=== PATIENT | male | born 1950 | race Caucasian/White ===

== ENCOUNTER 2017-03-17 06:42 | Emergency (ER) | payer OTHER ==
--- NOTE | 2017-03-17 07:28 | ED ORDER SUMMARY ---
..... Patient: TERE CARRERO OrderSheet [facility] VisitID: [id number] [place] [address] 66y, M Registration Date/Time: 03/17/2017 ORDER SHEET Weight: 72.5 kg (stated) Allergies: Penicillins, Seasonal GENERAL ORDERS: MEDICATION ORDERS: Albuterol Neb w Atrovent 1 unit dose (NOW) (06:47 03/17/2017 DDavis R.N. per protocol) (Ack 6:55 JQuivey R.N.) (6:57 MNance) Prednisone PO 40 mg (NOW) (06:52 03/17/2017 Jarrett Jiménez) (Ack 6:55 JQuivey R.N.) (6:58 DDavis R.N.) IV FLUIDS: ORDER SHEET NOTES: [Electronically signed by Mary Waller R.N. (07:44 03/17/2017)] [Electronically signed by Edward Srivastava Dr. (10:50 03/23/2017)] [Electronically locked/signed by Mary Waller R.N. (07:44 03/17/2017)]
--- NOTE | 2017-03-17 07:28 | ED ORDER SUMMARY ---
..... Patient: TERE CARRERO OrderSheet [facility] VisitID: [id number] [place] [address] 66y, M Registration Date/Time: 03/17/2017 ORDER SHEET Weight: 72.5 kg (stated) Allergies: Penicillins, Seasonal GENERAL ORDERS: MEDICATION ORDERS: Albuterol Neb w Atrovent 1 unit dose (NOW) (06:47 03/17/2017 DDavis R.N. per protocol) (Ack 6:55 JQuivey R.N.) (6:57 MNance) Prednisone PO 40 mg (NOW) (06:52 03/17/2017 Jarrett Jiménez) (Ack 6:55 JQuivey R.N.) (6:58 DDavis R.N.) IV FLUIDS: ORDER SHEET NOTES: [Electronically signed by Mary Waller R.N. (07:44 03/17/2017)] [Electronically signed by Edward Srivastava Dr. (10:50 03/23/2017)] [Electronically locked/signed by Mary Waller R.N. (07:44 03/17/2017)]
--- NOTE | 2017-03-17 07:28 | ED NURSING NOTES ---
Clinical Report - Nurses [facility] [address] [place] [address] 03/17/2017 6:44 Patient: TERE CARRERO TRIAGE Triage time 06:49. Acuity: LEVEL 3. Chief Complaint: SHORTNESS OF BREATH and WHEEZING. Alert. --06:53 Jason Bowman R.N. 06:48 03/17/17. BP: 166/85. HR: 94. RR: 24 (regular and labored). O2 saturation: 94%. Temp: 98.1 F (oral). Pain level now: 0/10. --06:53 Jason Bowman R.N. Weight: 72.5 kg stated. Height/Length: 70 inches Per Patient. BMI: 22.9. --06:51 Jason Bowman R.N. Medications Flonase Nasal. Flovent HFA Inhalation. --06:50 Jason Bowman R.N. Quvar. --06:51 Jason Bowman R.N. ProAir HFA Inhalation. --06:51 Jason Bowman R.N. Combivent Respimat Inhalation. Combivir Oral. --06:52 Jason Bowman R.N. Allergies Penicillins. Seasonal. --06:50 Jason Bowman R.N. History Arrived by private vehicle. Historian: patient. Unaccompanied. Onset. (>4 days ago). He has had wheezing. PAST MEDICAL HX: Asthma. SOCIAL HX: Never smoker. No alcohol use or drug use. ( denies SI/HI). FALL RISK ASSESSMENT: Fall risk assessment completed. No fall risk identified. NUTRITIONAL RISK ASSESSMENT: The nutritional risk assessment revealed no deficiencies. FUNCTIONAL ASSESSMENT: Functional assessment: no impairments noted. LEARNING NEEDS ASSESSMENT: The learning needs assessment revealed no barriers. SKIN INTEGRITY ASSESSMENT: Skin integrity risk assessment completed. No skin integrity risk identified. --06:53 Jason Bowman R.N. ADDITIONAL SURGERIES: no known surgeries. Interventions ID and allergy band on patient. To treatment room. --06:53 Jason Bowman R.N. PHYSICAL ASSESSMENT Ambulatory to room. GENERAL / NEURO / PSYCH: Alert. Oriented X 4. RESPIRATORY: Mild respiratory distress. Chest nontender. Wheezing present. CVS: Capillary refill less than 2 seconds. GI / : Abdomen soft and nontender. SKIN: Skin is warm and dry. --06:54 Jason Bowman R.N. NURSING PROGRESS NOTES Pulse oximeter and NIBP monitor placed on patient. Patient gowned. Head of bed elevated. Reassurance given. Two patient identifiers checked. Call light placed in reach. Side rails up x 1. Bed placed in lowest position. Brakes of bed on. Patient ready for evaluation- chart flagged. Patient waiting for evaluation. --06:54 Jason Bowman R.N. 06:57 03/17/2017 ALBUTEROL NEB W ATROVENT Neb TX 1 unit dose given. --06:57 Cecil Yeager 06:58 03/17/2017 Prednisone PO Tablets 40 mg given. Allergies verified and confirmed 5 rights. --06:58 Jason Bowman R.N. Care transferred and report given. --07:00 Jason Bowman R.N. ( Report given to Mary RN and Leoncio RN (dayswaft nurses). RT currently with patient, administering breathing treatment.). --07:01 Jason Bowman R.N. ( (Report given to Mary Waller RN)). --07:02 Jason Bowman R.N. 07:03 03/17/17. BP: 140/90 (regular adult cuff) taken on the left arm, while sitting. HR: 85. RR: 20. O2 saturation: 100% on nasal cannula at 3 liters/minute. --07:05 Mary Waller R.N. ( Patient just received albuterol treatment and is breathing better.). --07:06 Mary Waller R.N. DISPOSITION / DISCHARGE Condition at departure: improved. No learning barriers present. Discharge instructions provided and reviewed with the patient. Reviewed medication(s) side effects, precautions and dosing information. Prescription(s) given to the patient. Patient verbalized understanding. Written instructions provided in [place]. The patient was discharged by the physician. He was discharged home. He left the Emergency Department ambulatory and via private vehicle. Patient driving. --07:41 Mary Waller R.N. 07:36 03/17/17. BP: 125/77 (regular adult cuff) taken on the left arm, while sitting. HR: 79. RR: 18. O2 saturation: 97% on room air. Temp: 98.4 F (oral). Pain level now: 0/10. --07:41 Mary Waller R.N. Departure time: 07:43 Mar 17 2017. --07:43 Mary Waller R.N. Locked/Released at 03/17/2017 7:44 by Mary Waller R.N.
--- NOTE | 2017-03-17 07:28 | ED CLINICAL REPORT ---
Clinical Report - Physicians/Mid Levels [facility] [address] [place] [address] 03/17/2017 6:44 Patient: TERE CARRERO Time Seen: 06:52; initial patient contact. Arrived- By private vehicle. Historian- patient. HISTORY OF PRESENT ILLNESS Chief Complaint: DYSPNEA, WHEEZING and HISTORY OF ASTHMA. Is still present. The dyspnea is described as moderate. The patient has had a cough. No sputum production, orthopnea or chest pain or discomfort. Asthma triggers: allergies, animals and smoke. Takes asthma medications (inhaled albuterol, inhaled steroid, oral medication, leukotriene inhibitor) Similar symptoms previously: Many times. Recent medical care: Not recently seen/assessed. REVIEW OF SYSTEMS The patient has had a nasal discharge and sinus drainage. No fever, chills or skin rash. All systems otherwise negative, except as recorded above. PAST HISTORY Asthma. SOCIAL HISTORY Never smoker. No alcohol use or drug use. ADDITIONAL NOTES The nursing notes have been reviewed. PHYSICAL EXAM Vital Signs: 03/17/2017 06:48 BP: 166/85. HR: 94. RR: 24. O2 saturation: 94%. Temp: 98.1 F. Pain level now: 0/10. Have been reviewed. Hypertensive. Heart rate normal. Tachypneic. Temperature normal. Oxygen saturation low. Appearance: Alert. No acute distress. Eyes: Eyes normal inspection. ENT: Pharynx normal. Neck: Normal inspection. No JVD. CVS: Normal heart rate and rhythm. Heart sounds normal. Respiratory: Mild respiratory distress with accessory muscle use and retractions. Mildly prolonged expirations. Mildly decreased air movement diffusely over both lungs. Expiratory mild bilateral wheezes diffusely. No stridor, rales or rhonchi. Skin: Normal skin color. No rash. Extremities: No calf tenderness. No lower extremity edema. Neuro: Oriented X 3. PROGRESS AND PROCEDURES Course of Care: DuoNeb nebulizer treatment (1 unit dose) given. Physical exam findings are improved. Symptoms much better. Disposition: Discharged home in good and improved condition. Condition: good. CLINICAL IMPRESSION Moderate persistent asthma with an acute exacerbation. No status asthmaticus. INSTRUCTIONS Your Current Medications: CONTINUE TAKING THE FOLLOWING MEDICATIONS: Combivent Respimat Inhalation. Combivir Oral. Flonase Nasal. Flovent HFA Inhalation. ProAir HFA Inhalation. Quvar*. Prescription Medications: Prednisone 20 mg: take 2 orally every day for 4 days. Dispense sufficient quantity. No refills. (Start on 03/18/17) Follow-up: Follow up with your doctor in about two days. Call for an appointment. Screening today revealed the patient's blood pressure to be in the hypertensive range. The patient should follow up with a primary care provider for blood pressure management. (Electronically signed by Edward Srivastava Dr. 03/23/2017 10:50)
--- NOTE | 2017-03-17 07:28 | ED CLINICAL REPORT ---
Clinical Report - Physicians/Mid Levels [facility] [address] [place] [place] [address] 03/17/2017 6:44 Patient: TERE CARRERO Time Seen: 06:52; initial patient contact. Arrived- By private vehicle. Historian- patient. HISTORY OF PRESENT ILLNESS Chief Complaint: DYSPNEA, WHEEZING and HISTORY OF ASTHMA. Is still present. The dyspnea is described as moderate. The patient has had a cough. No sputum production, orthopnea or chest pain or discomfort. Asthma triggers: allergies, animals and smoke. Takes asthma medications (inhaled albuterol, inhaled steroid, oral medication, leukotriene inhibitor) Similar symptoms previously: Many times. Recent medical care: Not recently seen/assessed. REVIEW OF SYSTEMS The patient has had a nasal discharge and sinus drainage. No fever, chills or skin rash. All systems otherwise negative, except as recorded above. PAST HISTORY Asthma. SOCIAL HISTORY Never smoker. No alcohol use or drug use. ADDITIONAL NOTES The nursing notes have been reviewed. PHYSICAL EXAM Vital Signs: 03/17/2017 06:48 BP: 166/85. HR: 94. RR: 24. O2 saturation: 94%. Temp: 98.1 F. Pain level now: 0/10. Have been reviewed. Hypertensive. Heart rate normal. Tachypneic. Temperature normal. Oxygen saturation low. Appearance: Alert. No acute distress. Eyes: Eyes normal inspection. ENT: Pharynx normal. Neck: Normal inspection. No JVD. CVS: Normal heart rate and rhythm. Heart sounds normal. Respiratory: Mild respiratory distress with accessory muscle use and retractions. Mildly prolonged expirations. Mildly decreased air movement diffusely over both lungs. Expiratory mild bilateral wheezes diffusely. No stridor, rales or rhonchi. Skin: Normal skin color. No rash. Extremities: No calf tenderness. No lower extremity edema. Neuro: Oriented X 3. PROGRESS AND PROCEDURES Course of Care: DuoNeb nebulizer treatment (1 unit dose) given. Physical exam findings are improved. Symptoms much better. Disposition: Discharged home in good and improved condition. Condition: good. CLINICAL IMPRESSION Moderate persistent asthma with an acute exacerbation. No status asthmaticus. INSTRUCTIONS Your Current Medications: CONTINUE TAKING THE FOLLOWING MEDICATIONS: Combivent Respimat Inhalation. Combivir Oral. Flonase Nasal. Flovent HFA Inhalation. ProAir HFA Inhalation. Quvar*. Prescription Medications: Prednisone 20 mg: take 2 orally every day for 4 days. Dispense sufficient quantity. No refills. (Start on 03/18/17) Follow-up: Follow up with your doctor in about two days. Call for an appointment. Screening today revealed the patient's blood pressure to be in the hypertensive range. The patient should follow up with a primary care provider for blood pressure management. (Electronically signed by Edward Srivastava Dr. 03/23/2017 10:50)
--- NOTE | 2017-03-17 07:28 | ED NURSING NOTES ---
Clinical Report - Nurses [facility] [address] [place] [address] 03/17/2017 6:44 Patient: TERE CARRERO TRIAGE Triage time 06:49. Acuity: LEVEL 3. Chief Complaint: SHORTNESS OF BREATH and WHEEZING. Alert. --06:53 Jason Bowman R.N. 06:48 03/17/17. BP: 166/85. HR: 94. RR: 24 (regular and labored). O2 saturation: 94%. Temp: 98.1 F (oral). Pain level now: 0/10. --06:53 Jason Bowman R.N. Weight: 72.5 kg stated. Height/Length: 70 inches Per Patient. BMI: 22.9. --06:51 Jason Bowman R.N. Medications Flonase Nasal. Flovent HFA Inhalation. --06:50 Jason Bowman R.N. Quvar. --06:51 Jason Bowman R.N. ProAir HFA Inhalation. --06:51 Jason Bowman R.N. Combivent Respimat Inhalation. Combivir Oral. --06:52 Jason Bowman R.N. Allergies Penicillins. Seasonal. --06:50 Jason Bowman R.N. History Arrived by private vehicle. Historian: patient. Unaccompanied. Onset. (>4 days ago). He has had wheezing. PAST MEDICAL HX: Asthma. SOCIAL HX: Never smoker. No alcohol use or drug use. ( denies SI/HI). FALL RISK ASSESSMENT: Fall risk assessment completed. No fall risk identified. NUTRITIONAL RISK ASSESSMENT: The nutritional risk assessment revealed no deficiencies. FUNCTIONAL ASSESSMENT: Functional assessment: no impairments noted. LEARNING NEEDS ASSESSMENT: The learning needs assessment revealed no barriers. SKIN INTEGRITY ASSESSMENT: Skin integrity risk assessment completed. No skin integrity risk identified. --06:53 Jason Bowman R.N. ADDITIONAL SURGERIES: no known surgeries. Interventions ID and allergy band on patient. To treatment room. --06:53 Jason Bowman R.N. PHYSICAL ASSESSMENT Ambulatory to room. GENERAL / NEURO / PSYCH: Alert. Oriented X 4. RESPIRATORY: Mild respiratory distress. Chest nontender. Wheezing present. CVS: Capillary refill less than 2 seconds. GI / : Abdomen soft and nontender. SKIN: Skin is warm and dry. --06:54 Jason Bowman R.N. NURSING PROGRESS NOTES Pulse oximeter and NIBP monitor placed on patient. Patient gowned. Head of bed elevated. Reassurance given. Two patient identifiers checked. Call light placed in reach. Side rails up x 1. Bed placed in lowest position. Brakes of bed on. Patient ready for evaluation- chart flagged. Patient waiting for evaluation. --06:54 Jason Bowman R.N. 06:57 03/17/2017 ALBUTEROL NEB W ATROVENT Neb TX 1 unit dose given. --06:57 Cecil Yeager 06:58 03/17/2017 Prednisone PO Tablets 40 mg given. Allergies verified and confirmed 5 rights. --06:58 Jason Bowman R.N. Care transferred and report given. --07:00 Jason Bowman R.N. ( Report given to Mary RN and Leoncio RN (daysakft nurses). RT currently with patient, administering breathing treatment.). --07:01 Jason Bowman R.N. ( (Report given to Mary Waller RN)). --07:02 Jason Bowman R.N. 07:03 03/17/17. BP: 140/90 (regular adult cuff) taken on the left arm, while sitting. HR: 85. RR: 20. O2 saturation: 100% on nasal cannula at 3 liters/minute. --07:05 Mary Waller R.N. ( Patient just received albuterol treatment and is breathing better.). --07:06 Mary Waller R.N. DISPOSITION / DISCHARGE Condition at departure: improved. No learning barriers present. Discharge instructions provided and reviewed with the patient. Reviewed medication(s) side effects, precautions and dosing information. Prescription(s) given to the patient. Patient verbalized understanding. Written instructions provided in [place]. The patient was discharged by the physician. He was discharged home. He left the Emergency Department ambulatory and via private vehicle. Patient driving. --07:41 Mary Waller R.N. 07:36 03/17/17. BP: 125/77 (regular adult cuff) taken on the left arm, while sitting. HR: 79. RR: 18. O2 saturation: 97% on room air. Temp: 98.4 F (oral). Pain level now: 0/10. --07:41 Mary Waller R.N. Departure time: 07:43 Mar 17 2017. --07:43 Mary Waller R.N. Locked/Released at 03/17/2017 7:44 by Mary Waller R.N.
--- NOTE | 2017-03-23 10:50 | ED MED RECONCILIATION SUMMARY ---
Patient: TERE CARRERO Medication Reconciliation Report [facility] VisitID: [id number] [place] [address] 66y, M Registration Date/Time: 03/17/2017 Weight: 72.5 kg Height/Length: 70 in. BMI: 22.9 ALLERGIES: Penicillins, Seasonal The patient's Home Medications are listed below: CONTINUE TAKING THE FOLLOWING MEDICATIONS: Combivent Respimat Inhalation Combivir Oral Flonase Nasal Flovent HFA Inhalation ProAir HFA Inhalation Quvar The source(s) of the original Home Medication information: Not obtained. The following Medications were given to the patient in the Emergency Department: ALBUTEROL NEB W ATROVENT Neb [place] 1 unit dose, administered: 03/17/2017 6:57:00 AM Prednisone [PO] PO 40 mg, administered: 03/17/2017 6:58:00 AM The following Medications were prescribed to the patient: Prednisone 20 mg: take 2 orally every day for 4 days. Dispense sufficient quantity. No refills.(Start on 03/18/17) -- Edward Srivastava Dr.
--- NOTE | 2017-03-23 10:50 | ED DISCHARGE INSTRUCTIONS ---
Patient: TERE CARRERO General Instructions [facility] VisitID: [id number] [place] [address] 66y, M Registration Date/Time: 03/17/2017 Moderate persistent asthma with an acute exacerbation. No status asthmaticus. INSTRUCTIONS Your Current Medications: CONTINUE TAKING THE FOLLOWING MEDICATIONS: Combivent Respimat Inhalation. Combivir Oral. Flonase Nasal. Flovent HFA Inhalation. ProAir HFA Inhalation. Quvar*. Prescription Medications: Prednisone 20 mg: take 2 orally every day for 4 days. Dispense sufficient quantity. No refills. (Start on 03/18/17) Follow-up: Follow up with your doctor in about two days. Call for an appointment. Screening today revealed the patient's blood pressure to be in the hypertensive range. The patient should follow up with a primary care provider for blood pressure management. ADDITIONAL INFORMATION Asthma [Adult] Asthma is a disease where the small air passages within the lung go into spasm and restrict the flow of air. Inflammation and swelling of the airways cause further restriction. During an acute asthma attack, these factors cause difficulty breathing, wheezing, cough and chest tightness. An asthma attack can be triggered by many things. Common triggers include the common cold, bronchitis, pneumonia, irritants such as smoke or pullutants in the air, emotional upset and heavy exercise. Inmany adults with asthma, allergies todust, mold, pollen and animal dander can cause an asthma attack. Skipping doses of daily asthma medicine can also bring on an asthma attack. Asthma can be controlled with proper medicines and decreased exposure to known allergens. Home Care: Take prescribed medicine exactly at the times advised. If you have a hand-held inhaler or aerosol breathing medicine, do not use it more than once every four hours, unless told to do so. (If you need this medicine more than every four hours, you may need to return to the Emergency Room.) If prescribed an antibiotic or prednisone, take all of the medicine even if you are feeling better after a few days. Do not smoke. Avoid being exposed to the smoke of others. Some persons with asthma have worsening of their symptoms when they take aspirin and non-steroidal medicines like ibuprofen (Motrin, Advil) and naproxen (Aleve, Naprosyn). Talk to your doctor if you think this may apply to you. Acetaminophen (Tylenol)should be safe to use. Follow Up with your doctor, or as advised by our staff. Always bring all of your current medicines with you for your doctor to see. If you do not already have one, talk to your doctor about developing a personalized "Asthma Action Plan." [NOTE: A pneumococcal vaccine and yearly flu shot (every fall) are recommended. Ask your doctor about this.] Get Prompt Medical Attention if any of the following occur: Increased wheezing or shortness of breath Need to use your inhalers more often than usual without relief Fever of 100.4F (38C) or higher, or as directed by your healthcare provider Coughing up lots of dark-colored or bloody sputum (mucus) Chest pain with each breath You do not start to improve within 24 hours Call 911 If Any Of The Following Occur : Trouble walking or talking because of shortness of breath If you use a peak flow meter andyou are still in the red zone (less than 50 percent) 15 minutes after using inhaler medication Lips or fingernails turning zhao or blue Prednisone Oral tablet What is this medicine? PREDNISONE (PRED ni sone) is a corticosteroid. It is commonly used to treat inflammation of the skin, joints, lungs, and other organs. Common conditions treated include asthma, allergies, and arthritis. It is also used for other conditions, such as blood disorders and diseases of the adrenal glands. How should I use this medicine? Take this medicine by mouth with a glass of water. Follow the directions on the prescription label. Take this medicine with food. If you are taking this medicine once a day, take it in the morning. Do not take more medicine than you are told to take. Do not suddenly stop taking your medicine because you may develop a severe reaction. Your doctor will tell you how much medicine to take. If your doctor wants you to stop the medicine, the dose may be slowly lowered over time to avoid any side effects. Talk to your woods warden regarding the use of this medicine in children. Special care may be needed. What side effects may I notice from receiving this medicine? Side effects that you should report to your doctor or health women's health care nurse practitioner as soon as possible: allergic reactions like skin rash, itching or hives, swelling of the face, lips, or tongue changes in emotions or moods changes in vision depressed mood eye pain fever or chills, cough, sore throat, pain or difficulty passing urine increased thirst swelling of ankles, feet Side effects that usually do not require medical attention (report to your doctor or health women's health care nurse practitioner if they continue or are bothersome): confusion, excitement, restlessness headache nausea, vomiting skin problems, acne, thin and shiny skin trouble sleeping weight gain What may interact with this medicine? Do not take this medicine with any of the following medications: metyrapone mifepristone This medicine may also interact with the following medications: aminoglutethimide amphotericin B aspirin and aspirin-like medicines barbiturates certain medicines for diabetes, like glipizide or glyburide cholestyramine cholinesterase inhibitors cyclosporine digoxin diuretics ephedrine female hormones, like estrogens and control pills isoniazid ketoconazole NSAIDS, medicines for pain and inflammation, like ibuprofen or naproxen phenytoin rifampin toxoids vaccines warfarin What if I miss a dose? If you miss a dose, take it as soon as you can. If it is almost time for your next dose, talk to your doctor or health women's health care nurse practitioner. You may need to miss a dose or take an extra dose. Do not take double or extra doses without advice. Where should I keep my medicine? Keep out of the reach of children. Store at room temperature between 15 and 30 degrees C (59 and 86 degrees F). Protect from light. Keep container tightly closed. Throw away any unused medicine after the expiration date. What should I tell my health care provider before I take this medicine? They need to know if you have any of these conditions: Casey's syndrome diabetes glaucoma heart disease high blood pressure infection (especially a virus infection such as chickenpox, cold sores, or herpes) kidney disease liver disease mental illness myasthenia gravis osteoporosis seizures stomach or intestine problems thyroid disease an unusual or allergic reaction to lactose, prednisone, other medicines, foods, dyes, or preservatives or trying to get breast-feeding What should I watch for while using this medicine? Visit your doctor or health women's health care nurse practitioner for regular checks on your progress. If you are taking this medicine over a prolonged period, carry an identification card with your name and address, the type and dose of your medicine, and your doctor's name and address. This medicine may increase your risk of getting an infection. Tell your doctor or health women's health care nurse practitioner if you are around anyone with measles or chickenpox, or if you develop sores or blisters that do not heal properly. If you are going to have surgery, tell your doctor or health women's health care nurse practitioner that you have taken this medicine within the last twelve months. Ask your doctor or health women's health care nurse practitioner about your diet. You may need to lower the amount of salt you eat. This medicine may affect blood sugar levels. If you have diabetes, check with your doctor or health women's health care nurse practitioner before you change your diet or the dose of your diabetic medicine. You have been given the following additional information: Asthma, Acute (Adult) Prednisone Oral tablet (Electronically signed by Edward Srivastava Dr. 03/23/2017 10:50)
--- NOTE | 2017-03-23 10:50 | ED MAR SUMMARY ---
..... Medication Administration Record [facility] [address] [place] [address] Patient: TERE CARRERO Visit ID: [id number] 66y, M Weight: 72.5 kg Height/Length: 70 in BMI: 22.9 ALLERGIES: Penicillins, Seasonal Given 06:57 03/17/2017 Cecil Yeager, Medication Administered: ALBUTEROL NEB W ATROVENT, Dose: 1 unit dose Neb TX. Medication Ordered: Albuterol Neb w Atrovent 1 unit dose (NOW). Given 06:58 03/17/2017 Jason Bowman R.N. Medication Administered: PREDNISONE [PO], Dose: 40 mg Tablets PO. Medication Ordered: Prednisone PO 40 mg (NOW).
--- NOTE | 2017-03-23 10:50 | ED MED RECONCILIATION SUMMARY ---
Patient: TERE CARRERO Medication Reconciliation Report [facility] VisitID: [id number] [place] [address] 66y, M Registration Date/Time: 03/17/2017 Weight: 72.5 kg Height/Length: 70 in. BMI: 22.9 ALLERGIES: Penicillins, Seasonal The patient's Home Medications are listed below: CONTINUE TAKING THE FOLLOWING MEDICATIONS: Combivent Respimat Inhalation Combivir Oral Flonase Nasal Flovent HFA Inhalation ProAir HFA Inhalation Quvar The source(s) of the original Home Medication information: Not obtained. The following Medications were given to the patient in the Emergency Department: ALBUTEROL NEB W ATROVENT Neb TX 1 unit dose, administered: 03/17/2017 6:57:00 AM Prednisone [PO] PO 40 mg, administered: 03/17/2017 6:58:00 AM The following Medications were prescribed to the patient: Prednisone 20 mg: take 2 orally every day for 4 days. Dispense sufficient quantity. No refills.(Start on 03/18/17) -- Edward Srivastava Dr.
--- NOTE | 2017-03-23 10:50 | ED MAR SUMMARY ---
..... Medication Administration Record [facility] [address] [place] [address] Patient: TERE CARRERO Visit ID: [id number] 66y, M Weight: 72.5 kg Height/Length: 70 in BMI: 22.9 ALLERGIES: Penicillins, Seasonal Given 06:57 03/17/2017 Cecil Yeager, Medication Administered: ALBUTEROL NEB W ATROVENT, Dose: 1 unit dose Neb TX. Medication Ordered: Albuterol Neb w Atrovent 1 unit dose (NOW). Given 06:58 03/17/2017 Jason Bowman R.N. Medication Administered: PREDNISONE [PO], Dose: 40 mg Tablets PO. Medication Ordered: Prednisone PO 40 mg (NOW).
--- NOTE | 2017-03-23 10:50 | ED DISCHARGE INSTRUCTIONS ---
Patient: TERE CARRERO General Instructions [facility] VisitID: [id number] [place] [address] 66y, M Registration Date/Time: 03/17/2017 Moderate persistent asthma with an acute exacerbation. No status asthmaticus. INSTRUCTIONS Your Current Medications: CONTINUE TAKING THE FOLLOWING MEDICATIONS: Combivent Respimat Inhalation. Combivir Oral. Flonase Nasal. Flovent HFA Inhalation. ProAir HFA Inhalation. Quvar*. Prescription Medications: Prednisone 20 mg: take 2 orally every day for 4 days. Dispense sufficient quantity. No refills. (Start on 03/18/17) Follow-up: Follow up with your doctor in about two days. Call for an appointment. Screening today revealed the patient's blood pressure to be in the hypertensive range. The patient should follow up with a primary care provider for blood pressure management. ADDITIONAL INFORMATION Asthma [Adult] Asthma is a disease where the small air passages within the lung go into spasm and restrict the flow of air. Inflammation and swelling of the airways cause further restriction. During an acute asthma attack, these factors cause difficulty breathing, wheezing, cough and chest tightness. An asthma attack can be triggered by many things. Common triggers include the common cold, bronchitis, pneumonia, irritants such as smoke or pullutants in the air, emotional upset and heavy exercise. Inmany adults with asthma, allergies todust, mold, pollen and animal dander can cause an asthma attack. Skipping doses of daily asthma medicine can also bring on an asthma attack. Asthma can be controlled with proper medicines and decreased exposure to known allergens. Home Care: Take prescribed medicine exactly at the times advised. If you have a hand-held inhaler or aerosol breathing medicine, do not use it more than once every four hours, unless told to do so. (If you need this medicine more than every four hours, you may need to return to the Emergency Room.) If prescribed an antibiotic or prednisone, take all of the medicine even if you are feeling better after a few days. Do not smoke. Avoid being exposed to the smoke of others. Some persons with asthma have worsening of their symptoms when they take aspirin and non-steroidal medicines like ibuprofen (Motrin, Advil) and naproxen (Aleve, Naprosyn). Talk to your doctor if you think this may apply to you. Acetaminophen (Tylenol)should be safe to use. Follow Up with your doctor, or as advised by our staff. Always bring all of your current medicines with you for your doctor to see. If you do not already have one, talk to your doctor about developing a personalized "Asthma Action Plan." [NOTE: A pneumococcal vaccine and yearly flu shot (every fall) are recommended. Ask your doctor about this.] Get Prompt Medical Attention if any of the following occur: Increased wheezing or shortness of breath Need to use your inhalers more often than usual without relief Fever of 100.4F (38C) or higher, or as directed by your healthcare provider Coughing up lots of dark-colored or bloody sputum (mucus) Chest pain with each breath You do not start to improve within 24 hours Call 911 If Any Of The Following Occur : Trouble walking or talking because of shortness of breath If you use a peak flow meter andyou are still in the red zone (less than 50 percent) 15 minutes after using inhaler medication Lips or fingernails turning zhao or blue Prednisone Oral tablet What is this medicine? PREDNISONE (PRED ni sone) is a corticosteroid. It is commonly used to treat inflammation of the skin, joints, lungs, and other organs. Common conditions treated include asthma, allergies, and arthritis. It is also used for other conditions, such as blood disorders and diseases of the adrenal glands. How should I use this medicine? Take this medicine by mouth with a glass of water. Follow the directions on the prescription label. Take this medicine with food. If you are taking this medicine once a day, take it in the morning. Do not take more medicine than you are told to take. Do not suddenly stop taking your medicine because you may develop a severe reaction. Your doctor will tell you how much medicine to take. If your doctor wants you to stop the medicine, the dose may be slowly lowered over time to avoid any side effects. Talk to your buckle frame shaper regarding the use of this medicine in children. Special care may be needed. What side effects may I notice from receiving this medicine? Side effects that you should report to your doctor or health senior care provider as soon as possible: allergic reactions like skin rash, itching or hives, swelling of the face, lips, or tongue changes in emotions or moods changes in vision depressed mood eye pain fever or chills, cough, sore throat, pain or difficulty passing urine increased thirst swelling of ankles, feet Side effects that usually do not require medical attention (report to your doctor or health senior care provider if they continue or are bothersome): confusion, excitement, restlessness headache nausea, vomiting skin problems, acne, thin and shiny skin trouble sleeping weight gain What may interact with this medicine? Do not take this medicine with any of the following medications: metyrapone mifepristone This medicine may also interact with the following medications: aminoglutethimide amphotericin B aspirin and aspirin-like medicines barbiturates certain medicines for diabetes, like glipizide or glyburide cholestyramine cholinesterase inhibitors cyclosporine digoxin diuretics ephedrine female hormones, like estrogens and control pills isoniazid ketoconazole NSAIDS, medicines for pain and inflammation, like ibuprofen or naproxen phenytoin rifampin toxoids vaccines warfarin What if I miss a dose? If you miss a dose, take it as soon as you can. If it is almost time for your next dose, talk to your doctor or health senior care provider. You may need to miss a dose or take an extra dose. Do not take double or extra doses without advice. Where should I keep my medicine? Keep out of the reach of children. Store at room temperature between 15 and 30 degrees C (59 and 86 degrees F). Protect from light. Keep container tightly closed. Throw away any unused medicine after the expiration date. What should I tell my health care provider before I take this medicine? They need to know if you have any of these conditions: Casey's syndrome diabetes glaucoma heart disease high blood pressure infection (especially a virus infection such as chickenpox, cold sores, or herpes) kidney disease liver disease mental illness myasthenia gravis osteoporosis seizures stomach or intestine problems thyroid disease an unusual or allergic reaction to lactose, prednisone, other medicines, foods, dyes, or preservatives or trying to get breast-feeding What should I watch for while using this medicine? Visit your doctor or health senior care provider for regular checks on your progress. If you are taking this medicine over a prolonged period, carry an identification card with your name and address, the type and dose of your medicine, and your doctor's name and address. This medicine may increase your risk of getting an infection. Tell your doctor or health senior care provider if you are around anyone with measles or chickenpox, or if you develop sores or blisters that do not heal properly. If you are going to have surgery, tell your doctor or health senior care provider that you have taken this medicine within the last twelve months. Ask your doctor or health senior care provider about your diet. You may need to lower the amount of salt you eat. This medicine may affect blood sugar levels. If you have diabetes, check with your doctor or health senior care provider before you change your diet or the dose of your diabetic medicine. You have been given the following additional information: Asthma, Acute (Adult) Prednisone Oral tablet (Electronically signed by Edward Srivastava Dr. 03/23/2017 10:50)
== END 2017-03-17 07:43 | disposition home or self-care (01) ==
LOC: ED SRH 06:42
DX: J45.41 Moderate persistent asthma with (acute) exacerbation (principal); Z88.0 Allergy status to penicillin

== ENCOUNTER 2017-05-04 19:16 | Emergency (ER) | payer OTHER ==
--- NOTE | 2017-05-04 20:00 | ED CLINICAL REPORT ---
Clinical Report - Physicians/Mid Levels [facility] [address] [place] [address] 05/04/2017 19:18 Patient: TERE NOLAN Time Seen: 19:25; initial patient contact. Arrived- By private vehicle. Historian- patient. HISTORY OF PRESENT ILLNESS Chief Complaint: Injury to left leg. The injury happened just prior to arrival. Occurred at home. The patient sustained a direct blow. Fell. Patient is experiencing moderate pain. No other injury. REVIEW OF SYSTEMS The patient complains of pain on weight bearing. He has had swelling. All systems otherwise negative, except as recorded above. PAST HISTORY See nurses notes. Tetanus immunization status is up-to-date. Problems: Asthma. Medications: Albuterol Sulfate Inhalation. Singulair Oral. Dulera Inhalation. Allergies: No Known Drug Allergy. SOCIAL HISTORY Never smoker. Alcohol use. No drug use. ADDITIONAL NOTES The nursing notes have been reviewed with agreement regarding the chief complaint, HPI, ROS, PMH and patient medications and allergies. PHYSICAL EXAM Vital Signs: 05/04/2017 20:17 BP: 126/78. HR: 76. RR: 18. O2 saturation: 98%. Have been reviewed. Appearance: Alert. Oriented X3. No acute distress. Skin: Skin intact. Skin warm and dry. Normal skin color. Normal skin turgor. Extremities: Moderate soft-tissue tenderness present in the left lateral and anterior lower leg. No signs of infection involving the lower extremities. Left leg: moderate tenderness and swelling and small ecchymosis located in the medial aspect of mid leg. Limited weight bearing secondary to pain. Neurovascular intact distally. No deformity. Ankle stable. Extremities otherwise negative. Neuro, Vascular and Tendons: Vascular status intact. Sensation intact. Motor intact. Tendon function intact. Gait: Limping gait. Neuro: Oriented X 3. LABS, X-RAYS, AND EKG X-Rays: Left tib/fib negative. Lt Tib/Fib X-ray: (Name: Tere Nolan : 1950 MR#: [id number] Ordering Provider: PEDRO MCKEON Exam(s): XR TIBIA AND FIBULA - LEFT Date of Exam: 05/04/2017 __ PROCEDURE: XR TIBIA AND FIBULA - LEFT INDICATION: TRAUMA/INJURY TECHNIQUE: Two views of the left tibia and fibula COMPARISON: None. FINDINGS: Normal mineralization. No fractures. Normal osseous alignment. Well corticated, remote fracture of the medial malleolus. Tiny venous phlebolith noted along the proximal medial leg. No suspicious soft-tissue calcification or radiodense foreign bodies. IMPRESSION: 1. Intact left tibia and fibula. Electronically Final signed by:Jory Evans MD 05/04/2017 9:00:19 PM Technologist: DEEPAK). The X-rays were independently viewed by me, interpreted by the radiologist and discussed with the radiologist. PROGRESS AND PROCEDURES Course of Care: Patient is stable. Symptoms better. CLINICAL IMPRESSION Single contusion with soft tissue hematoma to the left lower leg. INSTRUCTIONS Apply ice. Elevate affected areas above chest level. No strenuous activity. You may walk and bear weight as tolerated. Do not work for two days until better. No dietary restrictions. (ice, elevate, if swelling worsens, or if numbness to the foot starts, RT ER for further evaluation). Warnings: COMPLICATIONS: Complications from this condition are possible. Future problems may include loss of function and pain. It is important to follow up with a physician for further evaluation and treatment. Your Current Medications: CONTINUE TAKING THE FOLLOWING MEDICATIONS: Albuterol Sulfate Inhalation. Dulera Inhalation. Singulair Oral. OTC Medications: Motrin IB 200 mg (available over the counter): take 4 orally every 8 hours as needed for pain, stiffness or swelling Follow-up: Follow up with your doctor Friday if not better. Reason for referral: contusion, if swelling worsens or numbness or tingling starts distal to the foot Return to the ER for further evaluation. Understanding of the discharge instructions verbalized by patient. (Electronically signed by Pedro Mckeon PA-C 05/04/2017 23:44)
--- NOTE | 2017-05-04 20:00 | ED NURSING NOTES ---
Clinical Report - Nurses [facility] [address] [place] [address] 05/04/2017 19:18 Patient: TERE CARRERO TRIAGE Triage time 1920. Acuity: LEVEL 4. Chief Complaint: INJURY TO THE LEFT LEG. Alert. No acute distress. (anxious). --19:34 Elidia Richey 19:30 05/04/17. BP: 148/79. HR: 80. RR: 18. O2 saturation: 99%. Temp: 98.0 F. Pain level now 8/10. --19:34 Elidia Richey. Weight: 79.3 kg. Height/Length: 70 inches. BMI: 25.1. --19:30 Elidia Richey. Medications Dulera Inhalation. --19:32 Elidia Richey Singulair Oral. --19:32 Elidia Richey Albuterol Sulfate Inhalation. --19:33 Elidia Richey. Medication/allergy information source: the patient. --19:34 Elidia Richey. Allergies No Known Drug Allergy. --19:33 Elidia Richey. History Arrived by private vehicle. Historian: patient. Accompanied by family. This occurred just prior to arrival. Mechanism of injury: fell. ( Pt was standing on a bucket and it collapsed, pt sts he hit the painful part of his leg on the bucket going down, pt with swelling and ecchymosis to left medial leg). He has had mild trouble walking. No numbness or tingling. Treatment WAITER/WAITRESS ROOM SERVICE: None. SOCIAL HX: Never smoker. Occasional alcohol use. FALL RISK ASSESSMENT: Fall risk assessment completed. No fall risk identified. NUTRITIONAL RISK ASSESSMENT: The nutritional risk assessment revealed no deficiencies. FUNCTIONAL ASSESSMENT: Functional assessment: no impairments noted. LEARNING NEEDS ASSESSMENT: The learning needs assessment revealed no barriers. SKIN INTEGRITY ASSESSMENT: Skin integrity risk assessment completed. No skin integrity risk identified. --19:34 Elidia Richey. PROBLEMS: Asthma. --19:33 Elidia Richey. Interventions ID band on patient. To treatment room. --19:34 Elidia Richey. PHYSICAL ASSESSMENT To room via wheelchair. GENERAL / NEURO / PSYCH: Oriented X 4. Alert. Appears anxious and in distress. EXTREMITIES: Capillary refill is less than 2 seconds in the extremities. Extremity pulses are within normal limits. Extremities exhibit normal ROM. Left leg: tenderness, swelling and ecchymosis. Limited weight bearing secondary to pain. ( Pt is very anxious, he sts there was a blood vessel that is close to the surface in injured area, pt is worried the swelling is from it being ruptured and bleeding). SKIN: Skin intact. Skin is warm and dry. --19:36 Elidia Richey. NURSING PROGRESS NOTES Cold pack applied. Reassurance given. Call light placed in reach. Bed placed in lowest position. Brakes of bed on. Patient ready for evaluation- chart flagged. --19:36 Elidia Richey 20:16 05/04/2017 Toradol (Ketorolac Tromethamine) IM 60 mg given. Given in the left gluteus wilber. Allergies verified and confirmed 5 rights. --20:16 Elidia Richey Patient fit with new crutches. Crutch training performed by [employer]; the patient demonstrated proper use. --20:19 Sergey Calverta. DISPOSITION / DISCHARGE Departure time: 2012. Condition at departure: unchanged and stable. No learning barriers present. Discharge instructions provided and reviewed with the patient. Reviewed medication(s). Patient verbalized understanding. Written instructions provided in [place]. The patient was discharged by the nurse practitioner. He was discharged home and accompanied by spouse. He left the Emergency Department on crutches and via private vehicle. Spouse driving. --20:17 Elidia Richey 20:17 05/04/17. BP: 126/78. HR: 76. RR: 18. O2 saturation: 98%. Pain level now 8/10. --20:17 Elidia Richey. Locked/Released at 05/08/2017 22:55 by Elidia Richey,
--- NOTE | 2017-05-04 20:00 | ED NURSING NOTES ---
Clinical Report - Nurses [facility] [address] [place] [address] 05/04/2017 19:18 Patient: TERE CARRERO TRIAGE Triage time 1920. Acuity: LEVEL 4. Chief Complaint: INJURY TO THE LEFT LEG. Alert. No acute distress. (anxious). --19:34 Elidia Richey 19:30 05/04/17. BP: 148/79. HR: 80. RR: 18. O2 saturation: 99%. Temp: 98.0 F. Pain level now 8/10. --19:34 Elidia Richey. Weight: 79.3 kg. Height/Length: 70 inches. BMI: 25.1. --19:30 Elidia Richey. Medications Dulera Inhalation. --19:32 Elidia Richey Singulair Oral. --19:32 Elidia iRchey Albuterol Sulfate Inhalation. --19:33 Elidia Richey. Medication/allergy information source: the patient. --19:34 Elidia Richey. Allergies No Known Drug Allergy. --19:33 Elidia Richey. History Arrived by private vehicle. Historian: patient. Accompanied by family. This occurred just prior to arrival. Mechanism of injury: fell. ( Pt was standing on a bucket and it collapsed, pt sts he hit the painful part of his leg on the bucket going down, pt with swelling and ecchymosis to left medial leg). He has had mild trouble walking. No numbness or tingling. Treatment PC INSTALLATION ENGINEER: None. SOCIAL HX: Never smoker. Occasional alcohol use. FALL RISK ASSESSMENT: Fall risk assessment completed. No fall risk identified. NUTRITIONAL RISK ASSESSMENT: The nutritional risk assessment revealed no deficiencies. FUNCTIONAL ASSESSMENT: Functional assessment: no impairments noted. LEARNING NEEDS ASSESSMENT: The learning needs assessment revealed no barriers. SKIN INTEGRITY ASSESSMENT: Skin integrity risk assessment completed. No skin integrity risk identified. --19:34 Elidia Richey. PROBLEMS: Asthma. --19:33 Elidia Richey. Interventions ID band on patient. To treatment room. --19:34 Elidia Richey. PHYSICAL ASSESSMENT To room via wheelchair. GENERAL / NEURO / PSYCH: Oriented X 4. Alert. Appears anxious and in distress. EXTREMITIES: Capillary refill is less than 2 seconds in the extremities. Extremity pulses are within normal limits. Extremities exhibit normal ROM. Left leg: tenderness, swelling and ecchymosis. Limited weight bearing secondary to pain. ( Pt is very anxious, he sts there was a blood vessel that is close to the surface in injured area, pt is worried the swelling is from it being ruptured and bleeding). SKIN: Skin intact. Skin is warm and dry. --19:36 Elidia Richey. NURSING PROGRESS NOTES Cold pack applied. Reassurance given. Call light placed in reach. Bed placed in lowest position. Brakes of bed on. Patient ready for evaluation- chart flagged. --19:36 Elidia Richey 20:16 05/04/2017 Toradol (Ketorolac Tromethamine) IM 60 mg given. Given in the left gluteus wilber. Allergies verified and confirmed 5 rights. --20:16 Elidia Richey Patient fit with new crutches. Crutch training performed by [employer]; the patient demonstrated proper use. --20:19 Sergey Calverta. DISPOSITION / DISCHARGE Departure time: 2012. Condition at departure: unchanged and stable. No learning barriers present. Discharge instructions provided and reviewed with the patient. Reviewed medication(s). Patient verbalized understanding. Written instructions provided in [place]ian. The patient was discharged by the nurse practitioner. He was discharged home and accompanied by spouse. He left the Emergency Department on crutches and via private vehicle. Spouse driving. --20:17 Elidia Richey 20:17 05/04/17. BP: 126/78. HR: 76. RR: 18. O2 saturation: 98%. Pain level now 8/10. --20:17 Elidia Richey. Locked/Released at 05/08/2017 22:55 by Elidia Richey,
--- NOTE | 2017-05-04 20:00 | ED ORDER SUMMARY ---
..... Patient: TERE CARRERO OrderSheet [facility] VisitID: [id number] [place] [address] 66y, M Registration Date/Time: 05/04/2017 ORDER SHEET Weight: 79.3 kg Allergies: No Known Drug Allergy GENERAL ORDERS: Tibia/Fibula Left (fell, hit bucket, pain medial midshaft tib) Urgent (19:39 05/04/2017 Brad TAMAYO) (Ack 19:43 ALawrence ER Tech1) (20:05 Bisi) Crutches (20:02 05/04/2017 Brad TAMAYO) MEDICATION ORDERS: Toradol IM 60 mg (NOW) (20:02 05/04/2017 Brad TAMAYO) (20:16 Margarette) IV FLUIDS: ORDER SHEET NOTES: [Electronically signed by Makenzie Medina PA-C (23:44 05/04/2017)] [Electronically signed by Elidia Richey (22:55 05/08/2017)] [Electronically locked/signed by Elidia Richey (22:55 05/08/2017)]
--- NOTE | 2017-05-04 20:00 | ED CLINICAL REPORT ---
Clinical Report - Physicians/Mid Levels [facility] [address] [place] [address] 05/04/2017 19:18 Patient: TERE NOLAN Time Seen: 19:25; initial patient contact. Arrived- By private vehicle. Historian- patient. HISTORY OF PRESENT ILLNESS Chief Complaint: Injury to left leg. The injury happened just prior to arrival. Occurred at home. The patient sustained a direct blow. Fell. Patient is experiencing moderate pain. No other injury. REVIEW OF SYSTEMS The patient complains of pain on weight bearing. He has had swelling. All systems otherwise negative, except as recorded above. PAST HISTORY See nurses notes. Tetanus immunization status is up-to-date. Problems: Asthma. Medications: Albuterol Sulfate Inhalation. Singulair Oral. Dulera Inhalation. Allergies: No Known Drug Allergy. SOCIAL HISTORY Never smoker. Alcohol use. No drug use. ADDITIONAL NOTES The nursing notes have been reviewed with agreement regarding the chief complaint, HPI, ROS, PMH and patient medications and allergies. PHYSICAL EXAM Vital Signs: 05/04/2017 20:17 BP: 126/78. HR: 76. RR: 18. O2 saturation: 98%. Have been reviewed. Appearance: Alert. Oriented X3. No acute distress. Skin: Skin intact. Skin warm and dry. Normal skin color. Normal skin turgor. Extremities: Moderate soft-tissue tenderness present in the left lateral and anterior lower leg. No signs of infection involving the lower extremities. Left leg: moderate tenderness and swelling and small ecchymosis located in the medial aspect of mid leg. Limited weight bearing secondary to pain. Neurovascular intact distally. No deformity. Ankle stable. Extremities otherwise negative. Neuro, Vascular and Tendons: Vascular status intact. Sensation intact. Motor intact. Tendon function intact. Gait: Limping gait. Neuro: Oriented X 3. LABS, X-RAYS, AND EKG X-Rays: Left tib/fib negative. Lt Tib/Fib X-ray: (Name: Tere Nolan : 1950 MR#: [id number] Ordering Provider: PEDRO MCKEON Exam(s): XR TIBIA AND FIBULA - LEFT Date of Exam: 05/04/2017 __ PROCEDURE: XR TIBIA AND FIBULA - LEFT INDICATION: TRAUMA/INJURY TECHNIQUE: Two views of the left tibia and fibula COMPARISON: None. FINDINGS: Normal mineralization. No fractures. Normal osseous alignment. Well corticated, remote fracture of the medial malleolus. Tiny venous phlebolith noted along the proximal medial leg. No suspicious soft-tissue calcification or radiodense foreign bodies. IMPRESSION: 1. Intact left tibia and fibula. Electronically Final signed by:Jory Evans MD 05/04/2017 9:00:19 PM Technologist: DEEPAK). The X-rays were independently viewed by me, interpreted by the radiologist and discussed with the radiologist. PROGRESS AND PROCEDURES Course of Care: Patient is stable. Symptoms better. CLINICAL IMPRESSION Single contusion with soft tissue hematoma to the left lower leg. INSTRUCTIONS Apply ice. Elevate affected areas above chest level. No strenuous activity. You may walk and bear weight as tolerated. Do not work for two days until better. No dietary restrictions. (ice, elevate, if swelling worsens, or if numbness to the foot starts, RT ER for further evaluation). Warnings: COMPLICATIONS: Complications from this condition are possible. Future problems may include loss of function and pain. It is important to follow up with a physician for further evaluation and treatment. Your Current Medications: CONTINUE TAKING THE FOLLOWING MEDICATIONS: Albuterol Sulfate Inhalation. Dulera Inhalation. Singulair Oral. OTC Medications: Motrin IB 200 mg (available over the counter): take 4 orally every 8 hours as needed for pain, stiffness or swelling Follow-up: Follow up with your doctor Friday if not better. Reason for referral: contusion, if swelling worsens or numbness or tingling starts distal to the foot Return to the ER for further evaluation. Understanding of the discharge instructions verbalized by patient. (Electronically signed by Pedro Mckeon PA-C 05/04/2017 23:44)
--- NOTE | 2017-05-04 20:00 | ED ORDER SUMMARY ---
..... Patient: TERE CARRERO OrderSheet [facility] VisitID: [id number] [place] [address] 66y, M Registration Date/Time: 05/04/2017 ORDER SHEET Weight: 79.3 kg Allergies: No Known Drug Allergy GENERAL ORDERS: Tibia/Fibula Left (fell, hit bucket, pain medial midshaft tib) Urgent (19:39 05/04/2017 Brad TAMAYO) (Ack 19:43 ALawrence ER Tech1) (20:05 Bisi) Crutches (20:02 05/04/2017 Brad TAMAYO) MEDICATION ORDERS: Toradol IM 60 mg (NOW) (20:02 05/04/2017 Brad TAMAYO) (20:16 Margarette) IV FLUIDS: ORDER SHEET NOTES: [Electronically signed by Makenzie Medina PA-C (23:44 05/04/2017)] [Electronically signed by Elidia Richey (22:55 05/08/2017)] [Electronically locked/signed by Elidia Richey (22:55 05/08/2017)]
--- NOTE | 2017-05-04 21:00 | DIAGNOSTIC IMAGING REPORT ---
PROCEDURE: XR TIBIA AND FIBULA - LEFT INDICATION: TRAUMA/INJURY TECHNIQUE: Two views of the left tibia and fibula COMPARISON: None. FINDINGS: Normal mineralization. No fractures. Normal osseous alignment. Well corticated, remote fracture of the medial malleolus. Tiny venous phlebolith noted along the proximal medial leg. No suspicious soft-tissue calcification or radiodense foreign bodies. IMPRESSION: 1. Intact left tibia and fibula.
--- NOTE | 2017-05-08 22:55 | ED MED RECONCILIATION SUMMARY ---
Patient: TERE CARRERO Medication Reconciliation Report VisitID: [id number] [address] [place] [address] 66y, M Registration Date/Time: 05/04/2017 Weight: 79.3 kg Height/Length: 70 in. BMI: 25.1 ALLERGIES: No Known Drug Allergy The patient's Home Medications are listed below: CONTINUE TAKING THE FOLLOWING MEDICATIONS: Albuterol Sulfate Inhalation Dulera Inhalation Singulair Oral The source(s) of the original Home Medication information: patient The following Medications were given to the patient in the Emergency Department: Toradol [IM] IM 60 mg, administered: 05/04/2017 8:16:00 PM The following Medications were prescribed to the patient: Motrin IB 200 mg (available over the counter): take 4 orally every 8 hours as needed for pain, stiffness or swelling -- Makenzie Medina PA-C
--- NOTE | 2017-05-08 22:55 | ED MAR SUMMARY ---
..... Medication Administration [facility] [address] [place] [address] Patient: TERE CARRERO Visit ID: [id number] 66y, M Weight: 79.3 kg Height/Length: 70 in BMI: 25.1 ALLERGIES: No Known Drug Allergy Given 20:16 05/04/2017 Elidia Richey, Medication Administered: TORADOL [IM] (KETOROLAC TROMETHAMINE), Dose: 60 mg IM. Medication Ordered: Toradol IM 60 mg (NOW).
--- NOTE | 2017-05-08 22:55 | ED MED RECONCILIATION SUMMARY ---
Patient: TERE CARRERO Medication Reconciliation Report [facility] VisitID: [id number] [address] [place] [address] 66y, M Registration Date/Time: 05/04/2017 Weight: 79.3 kg Height/Length: 70 in. BMI: 25.1 ALLERGIES: No Known Drug Allergy The patient's Home Medications are listed below: CONTINUE TAKING THE FOLLOWING MEDICATIONS: Albuterol Sulfate Inhalation Dulera Inhalation Singulair Oral The source(s) of the original Home Medication information: patient The following Medications were given to the patient in the Emergency Department: Toradol [IM] IM 60 mg, administered: 05/04/2017 8:16:00 PM The following Medications were prescribed to the patient: Motrin IB 200 mg (available over the counter): take 4 orally every 8 hours as needed for pain, stiffness or swelling -- Makenzie Medina PA-C
--- NOTE | 2017-05-08 22:55 | ED MAR SUMMARY ---
..... Medication Administration Record [facility] [address] [place] [address] Patient: TERE CARRERO Visit ID: [id number] 66y, M Weight: 79.3 kg Height/Length: 70 in BMI: 25.1 ALLERGIES: No Known Drug Allergy Given 20:16 05/04/2017 Elidia Richey, Medication Administered: TORADOL [IM] (KETOROLAC TROMETHAMINE), Dose: 60 mg IM. Medication Ordered: Toradol IM 60 mg (NOW).
--- NOTE | 2017-05-08 22:55 | ED DISCHARGE INSTRUCTIONS ---
Patient: TERE CARRERO General Instructions [facility] VisitID: [id number] [place] [address] 66y, M Registration Date/Time: 05/04/2017 Single contusion with soft tissue hematoma to the left lower leg. INSTRUCTIONS Apply ice. Elevate affected areas above chest level. No strenuous activity. You may walk and bear weight as tolerated. Do not work for two days until better. No dietary restrictions. (ice, elevate, if swelling worsens, or if numbness to the foot starts, RT ER for further evaluation). Warnings: COMPLICATIONS: Complications from this condition are possible. Future problems may include loss of function and pain. It is important to follow up with a physician for further evaluation and treatment. Your Current Medications: CONTINUE TAKING THE FOLLOWING MEDICATIONS: Albuterol Sulfate Inhalation. Dulera Inhalation. Singulair Oral. OTC Medications: Motrin IB 200 mg (available over the counter): take 4 orally every 8 hours as needed for pain, stiffness or swelling Follow-up: Follow up with your doctor Friday if not better. Reason for referral: contusion, if swelling worsens or numbness or tingling starts distal to the foot Return to the ER for further evaluation. Understanding of the discharge instructions verbalized by patient. ADDITIONAL INFORMATION Contusion,Soft Tissue You have a CONTUSION, which is a bruise with swelling and some bleeding under the skin. There are no broken bones. This injury takes a few days to a few weeks to heal. Home Care: 1) Keep the injured part elevated to reduce pain and swelling. This is especially important during the first 48 hours. 2) Make an ice pack (ice cubes in a plastic bag, wrapped in a towel) and apply for 20 minutes every 1-2 hours the first day. Continue this 3-4 times a day until the pain and swelling goes away. 3) You may use acetaminophen (Tylenol) or ibuprofen (Motrin, Advil) to control pain, unless another pain medicine was prescribed. [ NOTE : If you have chronic liver or kidney disease or ever had a stomach ulcer or GI bleeding, talk with your doctor before using these medicines.] Follow Up with your doctor or this facility if you are not improving within the next THREE days. [NOTE: If X-rays were taken, they will be reviewed by a radiologist. You will be notified of any new findings that may affect your care.] Get Prompt Medical Attention if any of the following occur: -- Pain or swelling increases -- Injured arm or leg becomes cold, blue, numb or tingly -- Redness, warmth or drainage from the skin Ibuprofen Oral tablet What is this medicine? IBUPROFEN (eye BYOO proe fen) is a non-steroidal anti-inflammatory drug (NSAID). It is used for dental pain, fever, headaches or migraines, osteoarthritis, rheumatoid arthritis, or painful monthly periods. It can also relieve minor aches and pains caused by a cold, flu, or sore throat. How should I use this medicine? Take this medicine by mouth with a glass of water. Follow the directions on the prescription label. Take this medicine with food if your stomach gets upset. Try to not lie down for at least 10 minutes after you take the medicine. Take your medicine at regular intervals. Do not take your medicine more often than directed. A special MedGuide will be given to you by the pharmacist with each prescription and refill. Be sure to read this information carefully each time. Talk to your intelligence group supervisor regarding the use of this medicine in children. Special care may be needed. What side effects may I notice from receiving this medicine? Side effects that you should report to your doctor or health direct care staffer as soon as possible: allergic reactions like skin rash, itching or hives, swelling of the face, lips, or tongue black or bloody stools, blood in the urine or in vomit breathing problems changes in vision chest pain general ill feeling or flu-like symptoms nausea or vomiting redness, blistering, peeling or loosening of the skin, including inside the mouth slurred speech or weakness on one side of the body stomach pain unexplained weight gain or swelling unusually weak or tired yellowing of eyes or skin Side effects that usually do not require medical attention (report to your doctor or health direct care staffer if they continue or are bothersome): constipation or diarrhea dizziness gas or heartburn stomach upset What may interact with this medicine? Do not take this medicine with any of the following medications: cidofovir ketorolac methotrexate pemetrexed This medicine may also interact with the following medications: alcohol aspirin diuretics lithium other drugs for inflammation like prednisone warfarin What if I miss a dose? If you miss a dose, take it as soon as you can. If it is almost time for your next dose, take only that dose. Do not take double or extra doses. Where should I keep my medicine? Keep out of the reach of children. Store at room temperature between 15 and 30 degrees C (59 and 86 degrees F). Keep container tightly closed. Throw away any unused medicine after the expiration date. What should I tell my health care provider before I take this medicine? They need to know if you have any of these conditions: asthma cigarette smoker drink more than 3 alcohol containing drinks a day heart disease or circulation problems such as heart failure or leg edema (fluid retention) high blood pressure kidney disease liver disease stomach bleeding or ulcers an unusual or allergic reaction to ibuprofen, aspirin, other NSAIDS, other medicines, foods, dyes, or preservatives or trying to get breast-feeding What should I watch for while using this medicine? Tell your doctor or healthcare professional if your symptoms do not start to get better or if they get worse. This medicine does not prevent heart attack or stroke. In fact, this medicine may increase the chance of a heart attack or stroke. The chance may increase with longer use of this medicine and in people who have heart disease. If you take aspirin to prevent heart attack or stroke, talk with your doctor or health direct care staffer. Do not take other medicines that contain aspirin, ibuprofen, or naproxen with this medicine. Side effects such as stomach upset, nausea, or ulcers may be more likely to occur. Many medicines available without a prescription should not be taken with this medicine. This medicine can cause ulcers and bleeding in the stomach and intestines at any time during treatment. Ulcers and bleeding can happen without warning symptoms and can cause . To reduce your risk, do not smoke cigarettes or drink alcohol while you are taking this medicine. You may get drowsy or dizzy. Do not drive, use machinery, or do anything that needs mental alertness until you know how this medicine affects you. Do not stand or sit up quickly, especially if you are an older patient. This reduces the risk of dizzy or fainting spells. This medicine can cause you to bleed more easily. Try to avoid damage to your teeth and gums when you brush or floss your teeth. You have been given the following additional information: Contusion, Soft Tissue Ibuprofen Oral tablet No strenuous activity. You may walk and bear weight as tolerated. Do not work for two days until better. (Electronically signed by Makenzie Medina PA-C 05/04/2017 23:44)
== END 2017-05-04 20:13 | disposition home or self-care (01) ==
LOC: ED SRH 19:16
DX: S80.12XA Contusion of left lower leg, initial encounter (principal); W18.39XA Other fall on same level, initial encounter; Y93.9 Activity, unspecified; Y92.019 Unspecified place in single-family (private) house as the place of occurrence of the external cause; Y99.9 Unspecified external cause status; J45.909 Unspecified asthma, uncomplicated; Z79.899 Other long term (current) drug therapy